=== PATIENT | female | born 1995 | race African-American/Black ===

== ENCOUNTER 2018-10-20 10:37 | Emergency (ER) | payer BC, SELFPAY ==
[2018-10-20 11:48] LABS: Bilirubin Negative (Negative); Blood, Urine Negative (Negative); Clarity Turbid (Clear); Glucose, Urine (Dipstick) Normal (Negative); Leukocyte 25 Leu/uL (Negative); Nitrite Negative (Negative); Pregnancy Test - Urine (BHCG) POSITIVE (Negative); Pregu Control Background? CLEAR/WHITE (CLR/WHITE); Pregu Control Bar Appear? YES (CONTROL BAR); Protein, Urine (Dipstick) 10 mg/dL (Neg-Trace); Urobilinogen Normal mg/dL (Less than 2)
[2018-10-20 11:57] LABS: Bacteria/HPF 1+ HPF (None Seen)
== END 2018-10-20 12:20 | disposition home or self-care (01) ==
LOC: ERS 10:37
DX: O21.9 Vomiting of pregnancy, unspecified (principal); Z3A.01 Less than 8 weeks gestation of pregnancy
CPT/HCPCS: 81003; 81015; 81025; 99281

== ENCOUNTER 2019-04-15 11:46 | Day surgery (SDC) | payer OTHER ==
[2019-04-15 12:34] VITALS: TEMP 98.1; BMI 36.8
[2019-04-15 14:04] LABS: Bacteria/HPF None Seen HPF (None Seen); Bilirubin Negative (Negative); Blood, Urine Negative (Negative); Clarity Clear (Clear); Glucose, Urine (Dipstick) 500 mg/dL (Negative); Leukocyte Negative Leu/uL (Negative); Mucous/LPF 1+ LPF (<2+); Nitrite Negative (Negative); Protein, Urine (Dipstick) 30 mg/dL (Neg-Trace); Urobilinogen Normal mg/dL (Less than 2)
[2019-04-15 14:05] LABS: Urine Culture Reflex No No
--- NOTE | 2019-04-15 14:31 | PDOC.FPROB ---
FMR OB H&P: HPI - History of Present Illness Chief Complaint: pressure, worsening back pain Indentification: G1 at 32.0 wks here for worsening back pain/pressure History of Present Illness: G1 at 32.0 wks with recently diagnosed GDM here for worsening back pain and abdominal pressure. Possible CTX but unable to describe. Feels pelvic pressure, but no VB/VD/LOF. Denies dysuria. has been complicated by microcephaly in which she has been seeing [facility] for. Per patient report, in the last visit MFM said she no longer had to follow up with them. She is scheduled for a follow appt at [facility] next Saturday. In regards to the back pain she has had throughout but has been worsening. Some sciatcia symptoms but no urine or bladder loss, no perineal numbness/tingling. Has not taken anything for it but has been trying Epson bath salts. No trauma. Primary Care Physician: Dr. White- [facility] FMR OB H&P: Current - Care : 1 Para: 0 Gestational age: 32.0 Due date: 06/10/19 - OB Labs Blood type: unknown RH: unknown Antibody Screen: unknown HIV: unknown RPR: unknown HepBsAg: unknown Quad screen: unknown Urine drug screen: not done Gonorrhea: unknown Chlamydia: unknown GBS: unknown FMR OB H&P: History - Past Medical History PMH: Denies - OB History OB History: GDM microcephaly that is reported as resolved. - DIRECTOR SYSTEMS History DIRECTOR SYSTEMS History: Denies - Surgical History Sx History: Abdominal hernia repair - Social History Social History: Denies TAD - Family History Family History: Denies FMR OB H&P: Medications - Current Home Medications: Medication Instructions Recorded Confirmed Type No Known 10/10/12 10/10/12 History Allergies/Adverse Reactions: Allergies Allergy/AdvReac Type Severity Reaction Status Date / Time shellfish derived Allergy Verified 04/15/19 12:25 FMR OB H&P: ROS - Review of Systems General: denies: fever/chills, weight/appetite/sleep changes ENT: denies: nasal congestion, rhinorrhea Cardiovascular: reports: edema. denies: chest pain, palpitation Respiratory: denies: cough, congestion, shortness of breath Gastrointestinal: denies: abdominal pain, nausea, vomiting, diarrhea, constipation, dark black tarry stools Genitourinary (Female): reports: contractions, vaginal pressure. denies: dysuria, vaginal discharge, vaginal bleeding Neurologic: denies: seizures, weakness Integumentary: denies: rash, lesions Endocrine: denies: cold intolerance, heat intolerance FMR OB H&P: Vital Signs - Maternal Vital signs: Vital Signs - First Documented Temp 98.1 F 04/15/19 12:24 - Heart Tones Baseline: 150 Variability: moderate Acceleration: present Deceleration: absent FMR OB H&P: Physical Exam - Physical Exam General: NAD, awake, alert and oriented HEENT: normocephalic and atraumatic, EOMI, conjunctiva clear, no scleral icterus , other (mildly dry mucosal membranes) Neck: supple, trachea midline Heart: RRR, normal S1/S2, no murmurs/rubs/gallops General: CTAB, no respiratory distress, good air movement Abdomen: soft, gravid, non-tender Musculoskeletal: normal gait and station, FROM in all four extremities Deviation from normal: Lumbosacral tenderness to palpation, neg straight leg raise test Skin: no rash, good tugor Psychiatric: intact recent and remote memory, good judgement and insight - Pelvic Exam Vulva: normal hair distribution, appropriate corinna stage Deviation from normal: white vaginal discharge SVE: cl/th/high FMR OB H&P: Results - Labs Lab results: Laboratory Results - last 24 hr 04/15/19 04/15/19 12:52 13:49 POC Glucose 84 Urine Color Yellow Urine Clarity Clear Urine pH 6.5 Ur Specific [place] 1.026 Urine Protein 30 A Urine Glucose (UA) 500 A Urine Ketones Trace A Urine Blood Negative Urine Nitrite Negative Urine Bilirubin Negative Urine Urobilinogen Normal Ur Leukocyte Esterase Negative Urine RBC 4-6 A Urine WBC 4-6 A Ur Squamous Epith Cells 7-10 A Urine Bacteria None Seen Urine Mucus 1+ Urine Culture Reflexed No FMR OB H&P: A/P - Problem List (1) with 32 completed weeks gestation Status: Acute Code(s): Z3A.32 - 32 WEEKS GESTATION OF (2) Gestational diabetes Status: Acute Code(s): O24.419 - GESTATIONAL DIABETES MELLITUS IN , UNSP CONTROL Discussion: Date/Time: 04/15/19 1429 1. CTX/Back pain in sIUP at 32.0 wks -Some CTX on monitor but no palpable CTX -FHT: Reactive -SVE: Cl/th/high -Will obtain UA and spec exam with VP3 in case this is cause of sxs -In light of negative tests it is likely consistent with MSK pain -Has appt with Dr. White at [facility] next Saturday 2. Lumbosacral pain with sciatica -Discussed conservative measures: VIMAL tylenol with heating pad -No SCC symptoms -Discussed worsening further along in and if so to discuss at provider at each visit -Reassess for improvement -Extensively discussed labor precuations 3. GDM -Recently dx -POC 86 today -Asx, has follow up appointment next Saturday to get all of diabetic supplies 4. Reported hx of microcephaly -Continue follow along with MFM This H&P was discussed with Dr. Lagunas who agree with the above documentation and plan. Addendum - Attending - Attending Attestation Date/Time: 04/16/19 5098 I personally evaluated the patient and discussed the management with Dr. Salvador I agree with the History, Examination, Assessment and Plan documented above with any addition or exceptions noted below.
--- NOTE | 2019-04-15 16:03 | PDOC.BPN ---
- Brief Progress Note UA was dirty catch but neg. for bacteria, Nitrites and LE. VP3 negative Had encouraged patient to inc. water intake 6-8 glasses water/day Results reviewed
== END 2019-04-15 14:00 | disposition home health service (06) ==
LOC: L&D/OP 11:46
PROVIDERS: ATTEND Student in an Organized Health Care Education/Training Program
DX: O99.89 Other specified diseases and conditions complicating pregnancy, childbirth and the puerperium (principal); R10.2 Pelvic and perineal pain; M54.40 Lumbago with sciatica, unspecified side; O24.419 Gestational diabetes mellitus in pregnancy, unspecified control; Z3A.32 32 weeks gestation of pregnancy; Z91.013 Allergy to seafood
CPT/HCPCS: 36416; 81001; 87480; 87510; 87660; 99283

== ENCOUNTER 2019-05-31 01:28 | Day surgery (SDC) | payer OTHER ==
[2019-05-31 02:01] VITALS: BP 132/76; TEMP 98; BMI 38.0
[2019-05-31] MEDS ORDERED: hydrALAZINE 20 MG/ML VIAL SLOW IVP PRN (02:46)
--- NOTE | 2019-05-31 02:46 | PDOC.FPROB ---
FMR OB H&P: HPI - History of Present Illness Chief Complaint: contractions Indentification: 24 yo at 38.5 wga by 15.0wk sono c/w LMP History of Present Illness: 24 yo F w/ PMHx of asthma presents w/ contractions starting at 21:00 on . Noted some pink to red vaginal bleeding on toilet paper when she wiped. No rachael VB or clots in toilet. Denies vaginal discharge or LOF. +FM. + vaginal pressure like she has to have BM. Hx of GDM, diet controlled; was planned for induction on Thursday 06/01 at 39 wga. Taking PNV, iron and vitamin C. Primary Care Physician: PNC: Christopher FMR OB H&P: Current - Care : 1 Para: 0 Gestational age: 38.5 Due date: 06/09/2019 Dating Criteria: 15.0 wk sono c/w LMP Course/Complications: GDM Anemia of Maternal hx of asthma - OB Labs Blood type: O RH: positive Antibody Screen: negative HIV: negative RPR: negative HepBsAg: negative Rubella: immune Quad screen: negative Gonorrhea: negative Chlamydia: negative Pap Smear: NILM 3 hour GTT: 132 fasting/112/108 A1c: 5.2 GBS: negative H&H: 10.8/30.7 - Anatomy Survey Anatomy survey: No abnormalities. Placenta posterior. Microcephaly on u/s, resolved on growth f/ u. FMR OB H&P: History - Past Medical History PMH: GDM Anemia of Asthma - OB History OB History: - [employer]PER History [employer] HEL[employer] History: last pap normal. No cervical surgeries. - Surgical History Sx History: Umbilical hernia repair at age 1. - Social History Social History: Denies. - Family History Family History: Father: sickle cell trait. Had testing for sickle cell herself and she is negative. FOB sister: trisomy 21 Mother: diabetes MGM, MGF: DM, HTN FMR OB H&P: Medications - Current Home Medications: Medication Instructions Recorded Confirmed Type No Known 10/10/12 10/10/12 History Allergies/Adverse Reactions: Allergies Allergy/AdvReac Type Severity Reaction Status Date / Time fluticasone Allergy Severe Swollen Verified 05/31/19 02:01 [From Advair Diskus] Lips salmeterol Allergy Severe Swollen Verified 05/31/19 02:01 [From Advair Diskus] Lips shellfish derived Allergy Severe Swollen Verified 05/31/19 01:53 Lips FMR OB H&P: ROS - Review of Systems General: denies: fever/chills, weight/appetite/sleep changes Eyes: denies: vision changes, scotomas ENT: denies: nasal congestion, sore throat Cardiovascular: reports: edema (swelling in legs b/l). denies: chest pain Respiratory: denies: cough, shortness of breath Gastrointestinal: denies: abdominal pain, nausea, vomiting, diarrhea, constipation Genitourinary (Female): reports: vaginal bleeding, contractions, vaginal pressure. denies: dysuria, vaginal discharge Musculoskeletal: reports: swelling. denies: pain Neurologic: reports: headache (mild MEHTA improved w/ time). denies: seizures, weakness Integumentary: denies: rash Hematologic/Lymphatic: denies: prolonged or excessive bleeding Psychological: denies: depression, anxiety FMR OB H&P: Vital Signs - Maternal Vital signs: Vital Signs - First Documented Temp Pulse Resp BP 98.0 F 83 18 132/76 05/31/19 01:50 05/31/19 01:50 05/31/19 01:50 05/31/19 01:50 - Heart Tones Baseline: 130 Variability: moderate Acceleration: present Deceleration: absent Category: category 1 [place] contractions every: 5-6 min FMR OB H&P: Physical Exam - Physical Exam General: NAD, awake, alert and oriented HEENT: normocephalic and atraumatic, MMM, conjunctiva clear, no scleral icterus , grossly normal vision, grossly normal hearing Neck: supple, trachea midline, no LAD Chest: non-tender to palpation Heart: RRR, normal S1/S2, no murmurs/rubs/gallops, pulses present General: CTAB, no respiratory distress, no wheezing Abdomen: soft, gravid, bowel sound present, other (mildly TTP) Neurological: no focal deficit Skin: no rash, good tugor, no jaundice Lymphatic: no unusual bruising or bleeding, no purpura, no petechia, no LAD Psychiatric: intact recent and remote memory, normal mood and affect - Pelvic Exam SVE: 2.5/50/-2, posterior, soft per RN Calvin score: 5 Membranes: intact Presentation: cephalic Estimated Weight: 8 lbs FMR OB H&P: A/P - Problem List (1) Current Visit: Yes Status: Acute (2) Gestational diabetes Current Visit: No Status: Acute Code(s): O24.419 - GESTATIONAL DIABETES MELLITUS IN , UNSP CONTROL Disposition: observe on L&D. Discussion: Date/Time: 05/31/19 024 Contractions at 38.5 wga - initial cervical check 2-3 cm/50/-2, calvin of 5 - recheck in ~2 hours - GBS neg, called [facility]. They will fax result - if making change, will keep on L&D and expectant mgmt. Pt does not desire epidural if she stays. - if not making change, will discuss discharge home and return for induction on Saturday or if ctx recur regularly.s GDM - check blood glucose Asthma - avoid hemabate This H&P was discussed with Dr. Saldana and Dr. Walker who agree with the above documentation and plan. Signature: Kesha Mcguire MD PGY1 Addendum - Attending - Attending Attestation Date/Time: 05/31/19 7246 I personally evaluated the patient and discussed the management with Dr. Mcguire. I agree with the History, Examination, Assessment and Plan documented above.
--- NOTE | 2019-05-31 04:11 | PDOC.BPN ---
<Judy Mcguire - Last Filed: 05/31/19 04:09> - Brief Progress Note Rechecked at 04:00. Cervix unchanged at 2.5/50/-2, posterior and soft. Plan for d/c home. Gave pt return precautions including increased frequency and intensity of ctx, vaginal bleeding, decreased FM, and LOF. Questions answered. Otherwise, plan for induction on Thursday 06/01 as scheduled. Pt seen w/ Dr. Walker at discharge. Agrees w/ plan. <Eyad Walker - Last Filed: 05/31/19 04:50> Addendum - Attending - Attending Attestation Date/Time: 05/31/19 8345 I personally evaluated the patient and discussed the management with Dr. Mcguire. I agree with the History, Examination, Assessment and Plan documented above.
[2019-05-31] MEDS ORDERED: FLU VACC QS2019-20(6MOS UP)/PF 60 MCG/0.5 ML SYRINGE IM ONE (09:00)
== END 2019-05-31 04:20 | disposition home or self-care (01) ==
LOC: L&D/OP 01:28
PROVIDERS: ATTEND Obstetrics & Gynecology
DX: O47.1 False labor at or after 37 completed weeks of gestation (principal); O24.410 Gestational diabetes mellitus in pregnancy, diet controlled; O99.513 Diseases of the respiratory system complicating pregnancy, third trimester; J45.909 Unspecified asthma, uncomplicated; O99.013 Anemia complicating pregnancy, third trimester; D64.9 Anemia, unspecified; Z3A.38 38 weeks gestation of pregnancy; Z88.8 Allergy status to other drugs, medicaments and biological substances; Z91.013 Allergy to seafood
CPT/HCPCS: 99283

== ENCOUNTER 2019-06-09 10:28 | Emergency (ER) | payer OTHER ==
[2019-06-09 11:01] LABS: #Basophils 0.1 thou/uL (0.0-0.2); #Eosinphils 0.4 thou/uL (0.0-0.7); #Lymphocytes 1.9 thou/uL (1.20-3.40); #Monocytes 0.6 thou/uL (0.11-0.59); %Basophils 0.8 % (0.0-1.0); %Eosinophils 4.5 % (0.0-10.0); %Lymphocytes 21.1 % (21.0-51.0); %Neutrophils 66.6 % (42.0-75.0); Hemoglobin 12.1 g/dL (12.0-16.0); Mean Corpuscular HGB CONC 34.3 g/dL (32.0-36.0); Mean Corpuscular Hemoglobin 30.5 pg (27.0-31.0); Mean Corpuscular Volume 88.9 fL (78.0-98.0); Platelet Count 372 thou/uL (130-400); RBC Distribution Width 14.1 % (11.5-14.5); Red Blood Cell (RBC) Count 3.97 mill/uL (4.20-5.40); White Blood Cell (WBC) Count 8.9 thou/uL (4.8-10.8)
[2019-06-09] MEDS ORDERED: Furosemide 20 MG/2 ML VIAL ONE (11:08)
[2019-06-09 11:18] LABS: ALT (SGPT) 37 U/L (8-55); AST (SGOT) 24 U/L (5-34); Albumin 3.9 g/dL (3.5-5.0); Alkaline Phosphatase 101 U/L (40-110); Anion Gap 10 mmol/L (10-20); BUN (Urea Nitrogen) 8 mg/dL (7.0-18.7); Bilirubin, Total 0.3 mg/dL (0.2-1.2); CK (CPK) 286 U/L (29-168); Calc. Creatinine Clearance 0 mL/min (70-130); Calcium 9.4 mg/dL (7.8-10.44); Carbon Dioxide 27 mmol/L (22-29); Chloride 105 mmol/L (98-107); Estimated GFR-MDRD Greater than 90; Globulin 3.4 g/dL (2.4-3.5); Glucose 76 mg/dL (70-105); Lipase 18 U/L (8-78); Potassium 4.1 mmol/L (3.5-5.1); Protein, Total 7.3 g/dL (6.0-8.3); Sodium 138 mmol/L (136-145)
--- NOTE | 2019-06-09 11:26 | RAD ---
PORTABLE CHEST: Date: 06/09/2019 HISTORY: Post eclampsia hypertension with swelling and extremities. FINDINGS: Heart size is within normal limits for portable technique. Mediastinal structures are unremarkable. L ungs are clear of any infiltrates. There are no signs of failure. IMPRESSION: No active intrathoracic disease. POS: [facility]
--- NOTE | 2019-06-10 13:43 | EKG ---
Test Reason : Blood Pressure : / mmHG Vent. Rate : 063 BPM Atrial Rate : 063 BPM P-R Int : 172 ms QRS Dur : 074 ms QT Int : 376 ms P-R-T Axes : 038 061 040 degrees QTc Int : 384 ms Normal sinus rhythm Normal ECG Confirmed by JOANNE VAZQUEZ ([id number]), news videotape editor MASON SPARKS ([id number]) on 06/10/2019 1:43:26 PM Referred By: Confirmed By:JOANNE VAZQUEZ
== END 2019-06-09 12:17 | disposition home or self-care (01) ==
LOC: ERS 10:28
DX: O99.89 Other specified diseases and conditions complicating pregnancy, childbirth and the puerperium (principal); M79.89 Other specified soft tissue disorders
CPT/HCPCS: 71045; 80053; 82550; 83690; 83880; 84484; 85025; 93005; 96374; J1940

== ENCOUNTER 2019-06-09 23:31 | Emergency (ER) | payer OTHER ==
[2019-06-10] MEDS ORDERED: Ketorolac Tromethamine 30 MG/ML VIAL ONE (00:07)
[2019-06-10 00:32] LABS: Bacteria/HPF None Seen HPF (None Seen); Bilirubin Negative (Negative); Blood, Urine 2+ (Negative); Clarity Clear (Clear); Glucose, Urine (Dipstick) Normal (Negative); Leukocyte 75 Leu/uL (Negative); Nitrite Negative (Negative); Protein, Urine (Dipstick) Negative (Neg-Trace); RBC/HPF None Seen HPF (0-3); Squamous Epithelial 0-3 HPF (0-3); Urobilinogen Normal mg/dL (Less than 2)
== END 2019-06-10 01:36 | disposition home or self-care (01) ==
LOC: ERS 23:31
DX: O99.89 Other specified diseases and conditions complicating pregnancy, childbirth and the puerperium (principal); M62.838 Other muscle spasm
CPT/HCPCS: 81003; 81015; 96372; 99283; J1885

== ENCOUNTER 2020-04-07 17:01 | Emergency (ER) | payer OTHER | END 2020-04-07 18:16 | disposition home or self-care (01) | LOC: ERS 17:01 | DX: S29.012A Strain of muscle and tendon of back wall of thorax, initial encounter (principal); S16.1XXA Strain of muscle, fascia and tendon at neck level, initial encounter; M79.602 Pain in left arm; V43.52XA Car driver injured in collision with other type car in traffic accident, initial encounter | CPT/HCPCS: 99283 ==